=== PATIENT | female | born 2000 | race Caucasian/White ===

== ENCOUNTER 2021-06-18 08:24 | Emergency (ER) | payer BC ==
[~2021-06-18] VITALS: Ht 172.7 cm; Wt 100.0 kg
[2021-06-18 09:01] LABS: BASOPHILS % (AUTO) 0.2 % (0-1); EOSINOPHILS % (AUTO) 0.2 % (0-6); HEMATOCRIT 51.8 % (35.0-45.0); HEMOGLOBIN 17.6 g/dl (12.0-16.0); LYMPHOCYTES # (AUTO) 1.8 X10'3 (1.1-4.8); LYMPHOCYTES % (AUTO) 11.9 % (21-51); MEAN CORPUSCULAR HEMOGLOBIN 29.6 PG (27.0-31.0); MEAN CORPUSCULAR VOLUME 86.8 FL (78-98); MEAN PLATELET VOLUME 9.6 FL (7.4-10.4); MONOCYTES # (AUTO) 0.6 X10'3 (0-0.9); MONOCYTES % (AUTO) 3.9 % (2-12); NEUTROPHILS # (AUTO) 12.3 X10'3 (1.8-7.7); NEUTROPHILS % (AUTO) 83.8 % (42-75); PLATELET COUNT 239 X10'3 (140-440); RED BLOOD COUNT 5.96 X10'6 (4.20-5.60); RED CELL DISTRIBUTION WIDTH 13.4 % (11.5-14.5); WHITE BLOOD COUNT 14.7 X10'3 (4.5-11.0)
[2021-06-18 09:15] LABS: ALANINE AMINOTRANSFERASE 29 U/L (12-78); ALBUMIN 4.8 G/DL (3.4-5.0); ALBUMIN/GLOBULIN RATIO 1.4 (1.1-1.5); ALKALINE PHOSPHATASE 74 IU/L (46-116); ANION GAP 19 (8-16); ASPARTATE AMINO TRANSFERASE 13 U/L (10-37); BILIRUBIN,TOTAL 0.7 MG/DL (0.1-1.0); BLOOD UREA NITROGEN 13 MG/DL (7-18); BUN/CREATININE RATIO 12.3 (6.6-38.0); CALCIUM 9.7 MG/DL (8.5-10.1); CHLORIDE 101 MMOL/L (99-107); CREATININE 1.06 MG/DL (0.40-0.90); GLUCOSE 146 MG/DL (70-104); LIPASE 75 U/L (73-393); SODIUM 139 MMOL/L (135-145); TOTAL CARBON DIOXIDE 19.3 MMOL/L (24-32); TOTAL PROTEIN 8.3 G/DL (6.4-8.2); eGFR 65 ML/MIN
[2021-06-18] MEDS ORDERED: famotidine/PF 10 mg/ml inj IV ONE (09:55)
[2021-06-18] MEDS ORDERED: diphenhydrAMINE 50 mg/ml inj IV ONE (09:55)
[2021-06-18] MEDS ORDERED: pantoprazole 40MG/NS 100ML BAG 100 ML IV ONE (09:55)
[2021-06-18] MEDS ORDERED: potassium Cl 10 mEq/100mL bag IV ONE (09:55)
[2021-06-18] MEDS ORDERED: LORazepam 2 mg/ml vial IV ONE (09:55)
[2021-06-18] MEDS ORDERED: proCHLORperazine 10 MG/2 ml inj IV ONE (09:55)
[2021-06-18] MEDS ORDERED: normal saline 1000ML IV soln IVB ONE (09:55)
[2021-06-18] MEDS ORDERED: POTASSIUM BICARB 20meq eff tab 20 MEQ TABLET.EFF PO ONE (10:30)
[2021-06-18 10:33] LABS: BETA HCG,QUANTITATIVE < 1.0 mIU/ml
--- NOTE | 2021-06-18 10:54 | NUR ---
Pt given warm blankets. Continues to take pulse ox off while drifting off to sleep. States nausea is the same without change. Not throwing up currently.
[2021-06-18] MEDS ORDERED: ondansetron/PF 4mg/2ml inj IV ONE (11:20)
[2021-06-18] MEDS ORDERED: haloperidol lactate 5mg/ml inj IM ONE (11:35)
--- NOTE | 2021-06-18 12:04 | NUR ---
Pt's IV came out. Inserted new one in R hand (other was left), 20g. Restarted fluids and potassium. Zofran given. IM haldol given in R deltoid. No apparent distress or needs at this time. No vomiting witnessed.
--- NOTE | 2021-06-18 12:58 | NUR ---
pt in bed appers to be sleeping
[2021-06-18 14:05] VITALS: BP 93/54
== END 2021-06-18 14:07 | disposition home or self-care (01) ==
LOC: ER 08:24
DX: R11.15 Cyclical vomiting syndrome unrelated to migraine (principal); R10.84 Generalized abdominal pain
CPT/HCPCS: 36415; 80053; 83690; 84702; 85025; 96361; 96372; 96374; 96375; 99285; C9113; J0780; J1200; J1630; J2060; J2405; J3480; J3490; J7030; 99284